=== PATIENT | female | born 1935 | race African-American/Black ===

== ENCOUNTER 2017-01-15 14:15 | Emergency (ER) | payer MEDICARE, MEDICAID ==
[~2017-01-15] VITALS: Ht 167.6 cm; Wt 81.0 kg
[~2017-01-15 14:15] MED LIST: FURO20TA4 PO; INSU3INS6 SUBCUT; METF10002 PO; ROSU20TA PO; SAXA5TAB PO; WARF2TAB57 PO; eliquis PO; invokana
[2017-01-15] MEDS ORDERED: ACETAMINOPHEN 325MG TABLET PO ONE (18:45)
[2017-01-15] MEDS ORDERED: HYDROCODONE/ACETAMINOPHEN 5/325MG TABLET PO PRN (19:00)
[2017-01-15 19:34] LABS: BASOPHILS % 0.7 % (0.0-2.0); EOSINOPHILS % 2.1 % (0.0-5.0); HEMATOCRIT. 32.6 % (36.0-48.0); HEMOGLOBIN. 10.9 g/dL (12.0-16.0); LYMPHOCYTES % 19.7 % (20.0-50.0); MEAN CORPUSCULAR HEMOGLOBIN 28.9 pg (28.0-32.0); MEAN CORPUSCULAR VOLUME 86.3 fL (81.0-99.0); MEAN PLATELET VOLUME 7.8 fl (7.4-10.4); MONOCYTES % 10.2 % (2.0-8.0); NEUTROPHILS % 67.3 % (40.0-76.0); PLATELET 342 x1000/uL (130-400); RED BLOOD CELL COUNT 3.78 mill/uL (4.2-5.4); RED CELL DISTRIBUTION WIDTH 14.8 % (11.6-14.6)
[2017-01-15 19:37] LABS: CHLORIDE 109 mEq/L (98-107)
[2017-01-15 19:43] LABS: CARBON DIOXIDE 26 mEq/L (21-32)
[2017-01-15 22:30] VITALS: BP 138/79
== END 2017-01-15 22:50 | disposition home or self-care (01) ==
LOC: ER 14:42
DX: Z48.01 Encounter for change or removal of surgical wound dressing (principal); E11.9 Type 2 diabetes mellitus without complications; Z86.718 Personal history of other venous thrombosis and embolism; Z79.4 Long term (current) use of insulin; Z79.899 Other long term (current) drug therapy
CPT/HCPCS: 36415; 74176; 80048; 85025; 99285

== ENCOUNTER 2021-04-21 10:12 | Inpatient (IN) | payer MEDICARE, MEDICAID ==
[~2021-04-21] VITALS: Ht 165.1 cm; Wt 90.7 kg
[~2021-04-21 10:12] MED LIST changes: +METF-416 PO; -METF10002 PO; -ROSU20TA PO; +ROSU20TA2 PO
[2021-04-21 12:15] LABS: BASOPHILS % 0.4 % (0.0-2.0); EOSINOPHILS % 0.5 % (0.0-5.0); HEMATOCRIT. 37.2 % (36.0-48.0); HEMOGLOBIN. 11.8 g/dL (12.0-16.0); LYMPHOCYTES % 10.7 % (20.0-50.0); MEAN CORPUSCULAR HEMOGLOBIN 27.9 pg (28.0-32.0); MEAN CORPUSCULAR VOLUME 87.9 fL (81.0-99.0); MEAN PLATELET VOLUME 8.4 fl (7.4-10.4); MONOCYTES % 6.4 % (2.0-8.0); PLATELET 277 x1000/uL (130-400); RED BLOOD CELL COUNT 4.23 mill/uL (4.2-5.4); RED CELL DISTRIBUTION WIDTH 14.8 % (11.6-14.6)
[2021-04-21] MEDS ORDERED: HYDROCODONE/ACETAMINOPHEN 5/325MG TABLET PO ONE (12:30)
[2021-04-21 13:11] LABS: CHLORIDE 104 mEq/L (98-107)
[2021-04-21 14:39] LABS: INR 1.1; PARTIAL THROMBOPLASTIN TIME 29.6 sec (23.4-31.0); PROTHROMBIN TIME 11.9 sec (9.6-11.0)
[2021-04-21] MEDS ORDERED: NAPR375T5 MT (17:34)
[2021-04-21] MEDS ORDERED: NITROGLYCERIN 0.4MG TABLET SL SL PRN (22:00)
[2021-04-21] MEDS ORDERED: DOCUSATE SODIUM 100MG CAPSULE PO PRN (22:00)
[2021-04-21] MEDS ORDERED: IPRATROPIUM/ALBUTEROL 0.5-3(2.5)MG/3ML NEB NEB PRN (22:00)
[2021-04-21] MEDS ORDERED: ZOLPIDEM TARTRATE 5MG TABLET PO PRN (22:00)
[2021-04-21] MEDS ORDERED: ONDANSETRON HCL 4MG/2ML INJ IV PRN (22:00)
[2021-04-21] MEDS ORDERED: GUAIFENESIN 200MG/10ML SUGAR FREE UDC PO PRN (22:00)
[2021-04-21] MEDS ORDERED: DEXTROSE 50% WATER 50ML SYRINGE IV PRN (22:00)
[2021-04-21] MEDS ORDERED: MAGNESIUM/ALUMINUM HYDROXIDE/SIMETHICONE 30ML UDC PO PRN (22:00)
[2021-04-21] MEDS ORDERED: KETOROLAC 15MG/ML VIAL IV PRN (22:00)
[2021-04-21] MEDS ORDERED: CLONIDINE 0.1MG TABLET PO PRN (22:00)
[2021-04-21] MEDS ORDERED: ACETAMINOPHEN 325MG TABLET PO PRN ×2 (22:00)
[2021-04-21] MEDS ORDERED: INSULIN GLARGINE UD 100 UNITS/ML SYR SUBCUT SCH (23:00)
[2021-04-21 23:10] LABS: CREATINE KINASE MB FRACTION 3.4 ng/mL (0.5-3.6)
[2021-04-22 03:56] LABS: FOLIC ACID (FOLATE) SERUM 9.7 ng/mL (>5.38)
[2021-04-22 05:10] LABS: BASOPHILS % 0.3 % (0.0-2.0); EOSINOPHILS % 1.3 % (0.0-5.0); HEMATOCRIT. 31.9 % (36.0-48.0); HEMOGLOBIN. 10.5 g/dL (12.0-16.0); LYMPHOCYTES % 10.3 % (20.0-50.0); MEAN CORPUSCULAR HEMOGLOBIN 28.5 pg (28.0-32.0); MEAN CORPUSCULAR VOLUME 86.3 fL (81.0-99.0); MEAN PLATELET VOLUME 8.6 fl (7.4-10.4); MONOCYTES % 5.5 % (2.0-8.0); NEUTROPHILS % 82.6 % (40.0-76.0); PLATELET 217 x1000/uL (130-400); RED CELL DISTRIBUTION WIDTH 14.7 % (11.6-14.6)
[2021-04-22 05:19] LABS: CHLORIDE 108 mEq/L (98-107)
[2021-04-22 05:24] LABS: PHOSPHORUS 2.1 mg/dL (2.5-4.9)
[2021-04-22 05:25] LABS: LDL CHOLESTEROL 87 mg/dL (5-100)
[2021-04-22 05:28] LABS: CREATINE KINASE 859 IU/L (26-192); CREATINE KINASE MB FRACTION 2.3 ng/mL (0.5-3.6); HDL CHOLESTEROL 35 mg/dL (40-59)
[2021-04-22] MEDS ORDERED: APIXABAN 5 MG TABLET PO SCH (06:00)
[2021-04-22] MEDS: INSULIN LISPRO 100 UNITS/ML SUBCUT SCH ×4 (08:20→21:00)
[2021-04-22] MEDS ORDERED: MAGNESIUM 2 G PREMIX 50 ML IV NR (08:30)
[2021-04-22] MEDS: BLOOD SUGAR DIAGNOSTIC STRIP TEST SCH ×4 (09:00→21:00)
[2021-04-22] MEDS ORDERED: ZINC SULFATE 220 MG ( 50 ) CAPSULE PO SCH (09:00)
[2021-04-22] MEDS ORDERED: ASCORBIC ACID 500 MG TABLET PO SCH (09:00)
[2021-04-22] MEDS: ASPIRIN 81MG EC TABLET PO SCH ×2 (09:00→14:53)
[2021-04-22] MEDS: POTASSIUM-SODIUM PHOSPHATE POWDER PACKET PO SCH ×2 (09:00→18:45)
[2021-04-22] MEDS ORDERED: INSULIN GLARGINE UD 100 UNITS/ML SYR SUBCUT SCH (10:00)
[2021-04-22 12:00] VITALS: BP 126/51
[2021-04-22 12:10] VITALS: BP 122/49
[2021-04-22 12:36] VITALS: BP 122/49
[2021-04-22] MEDS ORDERED: INSULIN GLARGINE UD 100 UNITS/ML SYR SUBCUT NR (13:00)
[2021-04-22] MEDS: CHOLECALCIFEROL (D3) 1000 UNIT TABLET PO SCH (14:52)
[2021-04-22] MEDS: FAMOTIDINE 20MG TABLET PO SCH (14:52)
[2021-04-22] MEDS: ASCORBIC ACID 500 MG TABLET PO SCH (14:53)
[2021-04-22] MEDS: FUROSEMIDE 20MG TABLET PO SCH (14:53)
[2021-04-22] MEDS: APIXABAN 2.5 MG TABLET PO SCH (18:45)
[2021-04-22 20:00] VITALS: BP 144/67
[2021-04-23] VITALS: BP 140/75
[2021-04-23 04:00] VITALS: BP 143/63
[2021-04-23] MEDS: BLOOD SUGAR DIAGNOSTIC STRIP TEST SCH ×4 (06:45→20:18)
[2021-04-23] MEDS: INSULIN LISPRO 100 UNITS/ML SUBCUT SCH ×4 (07:15→20:37)
[2021-04-23 07:22] LABS: BASOPHILS % 0.2 % (0.0-2.0); EOSINOPHILS % 3.7 % (0.0-5.0); HEMATOCRIT. 30.9 % (36.0-48.0); HEMOGLOBIN. 10.7 g/dL (12.0-16.0); LYMPHOCYTES % 18.2 % (20.0-50.0); MEAN CORPUSCULAR HEMOGLOBIN 29.4 pg (28.0-32.0); MEAN CORPUSCULAR VOLUME 85.3 fL (81.0-99.0); MEAN PLATELET VOLUME 8.6 fl (7.4-10.4); MONOCYTES % 8.9 % (2.0-8.0); PLATELET 225 x1000/uL (130-400); RED BLOOD CELL COUNT 3.63 mill/uL (4.2-5.4); RED CELL DISTRIBUTION WIDTH 14.5 % (11.6-14.6)
[2021-04-23 07:30] LABS: CHLORIDE 104 mEq/L (98-107)
[2021-04-23 07:45] LABS: PHOSPHORUS 2.6 mg/dL (2.5-4.9)
[2021-04-23] MEDS: FAMOTIDINE 20MG TABLET PO SCH (08:29)
[2021-04-23] MEDS: CHOLECALCIFEROL (D3) 1000 UNIT TABLET PO SCH (08:29)
[2021-04-23] MEDS: POTASSIUM-SODIUM PHOSPHATE POWDER PACKET PO SCH (08:29)
[2021-04-23] MEDS: FUROSEMIDE 20MG TABLET PO SCH (08:30)
[2021-04-23] MEDS: ASCORBIC ACID 500 MG TABLET PO SCH (08:30)
[2021-04-23] MEDS: INSULIN GLARGINE UD 100 UNITS/ML SYR SUBCUT SCH (10:00)
[2021-04-23] MEDS ORDERED: MAGNESIUM 2 G PREMIX 50 ML IV SCH (11:00)
[2021-04-23] MEDS ORDERED: VISCOUS LIDOCAINE 2% 15 ML UDC MM PRN (12:15)
[2021-04-23 20:00] VITALS: BP 154/68
[2021-04-23] MEDS: APIXABAN 2.5 MG TABLET PO SCH (20:36)
[2021-04-24] VITALS: BP 126/74
[2021-04-24 04:00] VITALS: BP 150/65
[2021-04-24] MEDS: APIXABAN 2.5 MG TABLET PO SCH ×2 (05:46→17:58)
[2021-04-24] MEDS: BLOOD SUGAR DIAGNOSTIC STRIP TEST SCH ×4 (05:53→21:45)
[2021-04-24] MEDS: INSULIN LISPRO 100 UNITS/ML SUBCUT SCH ×4 (05:53→21:44)
[2021-04-24] MEDS: ASPIRIN 81MG EC TABLET PO SCH (09:00)
[2021-04-24] MEDS: FAMOTIDINE 20MG TABLET PO SCH (09:00)
[2021-04-24] MEDS: ASCORBIC ACID 500 MG TABLET PO SCH (09:00)
[2021-04-24] MEDS: CHOLECALCIFEROL (D3) 1000 UNIT TABLET PO SCH (09:00)
[2021-04-24] MEDS: POTASSIUM-SODIUM PHOSPHATE POWDER PACKET PO SCH (09:00)
[2021-04-24] MEDS: FUROSEMIDE 20MG TABLET PO SCH (09:00)
[2021-04-24] MEDS: INSULIN GLARGINE UD 100 UNITS/ML SYR SUBCUT SCH (10:00)
[2021-04-24] MEDS: DILTIAZEM HCL 120MG CAPSULE CD 24HR PO SCH (10:25)
[2021-04-24] MEDS: CEFTRIAXONE 1,000 MG in DEXTROSE 5% WATER 50 ML IV SCH (17:58)
[2021-04-25] MEDS: APIXABAN 2.5 MG TABLET PO SCH ×2 (06:03→18:41)
[2021-04-25] MEDS: BLOOD SUGAR DIAGNOSTIC STRIP TEST SCH ×4 (06:45→21:00)
[2021-04-25 07:16] LABS: BASOPHILS % 0.5 % (0.0-2.0); EOSINOPHILS % 2.8 % (0.0-5.0); HEMOGLOBIN. 10.6 g/dL (12.0-16.0); LYMPHOCYTES % 22.9 % (20.0-50.0); MEAN CORPUSCULAR HEMOGLOBIN 28.6 pg (28.0-32.0); MEAN PLATELET VOLUME 8.3 fl (7.4-10.4); MONOCYTES % 11.5 % (2.0-8.0); NEUTROPHILS % 62.3 % (40.0-76.0); PLATELET 252 x1000/uL (130-400); RED BLOOD CELL COUNT 3.72 mill/uL (4.2-5.4); RED CELL DISTRIBUTION WIDTH 14.7 % (11.6-14.6)
[2021-04-25 07:37] LABS: CHLORIDE 104 mEq/L (98-107)
[2021-04-25] MEDS: DILTIAZEM HCL 120MG CAPSULE CD 24HR PO SCH (09:46)
[2021-04-25] MEDS: CHOLECALCIFEROL (D3) 1000 UNIT TABLET PO SCH (09:46)
[2021-04-25] MEDS: FUROSEMIDE 20MG TABLET PO SCH (09:46)
[2021-04-25] MEDS: POTASSIUM-SODIUM PHOSPHATE POWDER PACKET PO SCH ×2 (09:47→14:17)
[2021-04-25] MEDS: ASCORBIC ACID 500 MG TABLET PO SCH (09:47)
[2021-04-25] MEDS: ASPIRIN 81MG EC TABLET PO SCH (09:47)
[2021-04-25] MEDS: INSULIN LISPRO 100 UNITS/ML SUBCUT SCH ×3 (09:48→17:15)
[2021-04-25] MEDS: FAMOTIDINE 20MG TABLET PO SCH (09:49)
[2021-04-25] MEDS: INSULIN GLARGINE UD 100 UNITS/ML SYR SUBCUT SCH (11:12)
[2021-04-25] MEDS ORDERED: SODIUM PHOS,M-BASIC-D-BASIC 15 MM in DEXT 5% WATER 245 ML IV NR (12:00)
[2021-04-25] MEDS: CEFTRIAXONE 1,000 MG in DEXTROSE 5% WATER 50 ML IV SCH (14:17)
[2021-04-26] VITALS: BP 121/55
[2021-04-26] MEDS: POTASSIUM-SODIUM PHOSPHATE POWDER PACKET PO SCH ×3 (00:18→17:11)
[2021-04-26] MEDS: INSULIN LISPRO 100 UNITS/ML SUBCUT SCH ×5 (00:18→22:50)
[2021-04-26 04:00] VITALS: BP 111/54
[2021-04-26] MEDS: APIXABAN 2.5 MG TABLET PO SCH ×2 (06:55→17:11)
[2021-04-26] MEDS: BLOOD SUGAR DIAGNOSTIC STRIP TEST SCH ×4 (06:55→21:00)
[2021-04-26] MEDS: FAMOTIDINE 20MG TABLET PO SCH (09:00)
[2021-04-26] MEDS: ASPIRIN 81MG EC TABLET PO SCH (09:00)
[2021-04-26] MEDS: CHOLECALCIFEROL (D3) 1000 UNIT TABLET PO SCH (09:00)
[2021-04-26] MEDS: DILTIAZEM HCL 120MG CAPSULE CD 24HR PO SCH (09:00)
[2021-04-26] MEDS: FUROSEMIDE 20MG TABLET PO SCH (09:00)
[2021-04-26] MEDS: ASCORBIC ACID 500 MG TABLET PO SCH (09:00)
[2021-04-26] MEDS ORDERED: INSULIN GLARGINE UD 100 UNITS/ML SYR SUBCUT SCH (10:00)
[2021-04-26] MEDS: CEFTRIAXONE 1,000 MG in DEXTROSE 5% WATER 50 ML IV SCH (12:11)
[2021-04-26 15:54] VITALS: BP 133/41
== END 2021-04-27 00:15 | DRG 555 ==
LOC: ER 10:28 → ENRESERV 19:58 → 5WST 21:48 → EDBEDREQSVC 21:56 → EDBEDREQTM 21:56 → EDBEDREQ 21:56 → SUPCPDRO 22:37 → EDBEDREQSVC 04-22 05:04 → EDBEDREQDT 04-22 05:04 → EDBEDREQTM 04-22 05:05
PROVIDERS: ADMIT Internal Medicine; ATTEND Internal Medicine
DX: M79.89 Other specified soft tissue disorders (principal); E43 Unspecified severe protein-calorie malnutrition; R26.2 Difficulty in walking, not elsewhere classified; D63.8 Anemia in other chronic diseases classified elsewhere; E83.42 Hypomagnesemia; E83.39 Other disorders of phosphorus metabolism; E11.9 Type 2 diabetes mellitus without complications; I27.20 Pulmonary hypertension, unspecified; I10 Essential (primary) hypertension; E78.5 Hyperlipidemia, unspecified; E78.00 Pure hypercholesterolemia, unspecified; M19.90 Unspecified osteoarthritis, unspecified site; L89.156 Pressure-induced deep tissue damage of sacral region; Z96.653 Presence of artificial knee joint, bilateral; K21.9 Gastro-esophageal reflux disease without esophagitis; Z20.822 Contact with and (suspected) exposure to COVID-19; Z82.49 Family history of ischemic heart disease and other diseases of the circulatory system; Z86.711 Personal history of pulmonary embolism; Z79.899 Other long term (current) drug therapy; Z79.84 Long term (current) use of oral hypoglycemic drugs; Z79.4 Long term (current) use of insulin; Z68.33 Body mass index [BMI] 33.0-33.9, adult; Z86.718 Personal history of other venous thrombosis and embolism; Z79.01 Long term (current) use of anticoagulants; Z90.710 Acquired absence of both cervix and uterus; Z87.440 Personal history of urinary (tract) infections
CPT/HCPCS: 36415; 71045; 80048; 80053; 80061; 82040; 82550; 82553; 82607; 82746; 82962; 83036; 83540; 83550; 83605; 83735; 84100; 84134; 84145; 84443; 84484; 85025; 87426; 93005; 93306; 93970; 97116; 97162; 97166; 97530; 97535; 99285; J0696; J1815; J3475; J3490; J7060